=== PATIENT | female | born 1970 | race Caucasian/White ===

== ENCOUNTER 2016-06-27 14:23 | Emergency (ER) | payer OTHER ==
[2016-06-27 15:05] VITALS: RESP 20
[2016-06-27] MEDS ORDERED: Sodium Chloride 0.9% 1,000 ML IV ONE (15:24)
--- NOTE | 2016-06-27 15:37 | C.PDOC ---
History Of Present Illness 45-year-old female, presents to the emergency department with complaints of vaginal bleeding x1 month. Patient seen by OBGYN, who prescribed Provera. Patient denies fever, nausea/vomiting, abdominal pain, or any other associated symptoms. No other complaints at this time. Time Seen by Provider: 06/27/16 15:10 Chief Complaint (Nursing): Female Genitourinary History Per: Patient History/Exam Limitations: no limitations Onset/Duration Of Symptoms: Days Current Symptoms Are (Timing): Still Present Severity: Moderate Past Medical History Reviewed: Historical Data, Nursing Documentation, Vital Signs Vital Signs: Last Vital Signs Temp 97.6 F 06/27/16 17:13 Pulse 72 06/27/16 17:13 Resp 20 06/27/16 17:13 BP 131/75 06/27/16 17:13 Pulse Ox 100 06/27/16 18:39 - Medical History PMH: Anemia, Gastritis, HTN, Hypercholesterolemia - [facility] Procedures D & C NEC (11/09/12) HYSTEROSCOPY (11/09/12) INFLUENZA VACCINATION (11/09/12) INJECT/INFUSE NEC (07/15/13) Family History: States: Unknown Family Hx - Social History Hx Tobacco Use: No Hx Alcohol Use: No Hx Substance Use: No - Immunization History Hx Tetanus Toxoid Vaccination: No Hx Influenza Vaccination: No Hx Pneumococcal Vaccination: Yes Review Of Systems Except As Marked, All Systems Reviewed And Found Negative. Constitutional: Negative for: Fever, Chills Cardiovascular: Negative for: Chest Pain Respiratory: Negative for: Shortness of Breath Gastrointestinal: Negative for: Nausea, Vomiting, Abdominal Pain Genitourinary: Positive for: Vaginal Bleeding. Negative for: Dysuria Musculoskeletal: Negative for: Back Pain Physical Exam - Physical Exam Appears: Non-toxic, No Acute Distress Skin: Warm, Dry, No Rash Head: Atraumatic, Normacephalic Eye(s): bilateral: PERRL, EOMI, Conjunctiva Pale Nose: Normal Oral Mucosa: Moist Lips: Normal Appearing Neck: Normal ROM Cardiovascular: Rhythm Regular, No Murmur Respiratory: Normal Breath Sounds, No Accessory Muscle Use Back: Normal Inspection Extremity: Normal ROM ED Course And Treatment - Laboratory Results Result Diagrams: 06/27/16 16:01 06/27/16 16:01 O2 Sat by Pulse Oximetry: 100 Medical Decision Making Medical Decision Making: r/o anemia 2/2 fibroids. pt with known fibroids, no abdominal pain. no indication for us in er. pt well appearing on cell phone in nad. 445: h/h stable. abd soft. advised continued outpt mangement. Disposition - Disposition Disposition: HOSPITALIZED Disposition Time: 05:00 Condition: STABLE Additional Instructions: please follow up with your obgyn. return to er with worsening symptoms or concerns. Instructions: Dysfunctional Uterine Bleeding (ED) - Clinical Impression Clinical Impression: Vaginal bleeding - Scribe Statement The provider has reviewed the documentation as recorded by the Cecilibden Warren All medical record entries made by the Young were at my direction and personally dictated by me. I have reviewed the chart and agree that the record accurately reflects my personal performance of the history, physical exam, medical decision making, and the department course for this patient. I have also personally directed, reviewed, and agree with the discharge instructions and disposition.
[2016-06-27 16:21] LABS: BASO % 0.5 % (0.0-2.0); EOS # 0.1 K/uL (0.0-0.7); HEMATOCRIT 33.5 % (34.0-47.0); LYMPH % 35.1 % (20.0-40.0); MEAN CELL VOLUME 83.1 fL (81.0-99.0); MEAN CORPUSCULAR HEMOGLOBIN 28.3 pg (27.0-31.0); MEAN PLATELET VOLUME 7.8 fL (7.2-11.7); MONO # 0.3 K/uL (0.0-0.8); MONO % 5.9 % (0.0-10.0); RED CELL DISTRIBUTION WIDTH 14.6 % (11.5-14.5); WHITE BLOOD COUNT 5.8 K/uL (4.8-10.8)
[2016-06-27 16:31] LABS: INR 1.1
[2016-06-27 16:32] LABS: CHLORIDE 99 mmol/L (98-107); POTASSIUM 3.2 mmol/L (3.6-5.2); SODIUM 138 mmol/L (132-148)
[2016-06-27 16:34] LABS: ALB/GLOB RATIO 1.3 (1.0-2.1); AST/SGOT 23 U/L (14-36); BILIRUBIN,TOTAL 0.5 mg/dL (0.2-1.3); CARBON DIOXIDE 27 mmol/L (22-30); GFR AFRICAN-AMERICAN > 60; TOTAL PROTEIN 6.8 g/dL (6.3-8.3)
[2016-06-27 16:35] LABS: ALKALINE PHOSPHATASE 46 U/L (38-126); ALT/SGPT 20 U/L (9-52); BLOOD UREA NITROGEN 10 mg/dL (7-17); CALCIUM 8.5 mg/dl (8.6-10.4); GLUCOSE,RANDOM 123 mg/dL (65-105)
[2016-06-27] MEDS ORDERED: Potassium Chloride 20 mEq ER Tab PO STA (16:38)
[2016-06-27 16:54] LABS: RBC URINE 2557 /hpf (0-3); URINE BACTERIA RARE (<OCC); URINE BILIRUBIN NEGATIVE (NEGATIVE); URINE BLOOD 3+ (NEGATIVE); URINE COLOR Yellow (YELLOW); URINE GLUCOSE (UA) NORMAL (Normal); URINE KETONE TRACE mg/dL (NEGATIVE); URINE LEUKOCYTE ESTERASE NEG Leu/uL (Negative); URINE PROTEIN 2+ mg/dL (NEGATIVE); URINE UROBILINOGEN NORMAL mg/dL (0.2-1.0); WBC URINE 2 /hpf (0-5)
[2016-06-27] MEDS ORDERED: Potassium Chloride 20 mEq ER Tab PO ONE (17:07)
[2016-06-27 17:13] VITALS: BP 131/75; PULSE 72; TEMP 97.6
[2016-06-27 18:39] VITALS: O2SAT 100
== END 2016-06-27 17:15 | disposition short-term general hospital (02) ==
LOC: C.ER 14:23
DX: N93.9 Abnormal uterine and vaginal bleeding, unspecified (principal); E87.6 Hypokalemia
CPT/HCPCS: 80053; 81001; 84703; 85025; 85610; 85730; 86850; 86900; 96360; 99284; J7040